=== PATIENT | female | born 1950 | race Hispanic/Latino ===

== ENCOUNTER → 2019-07-28 | Outpatient (CLI) | payer OTHER | END | disposition home or self-care (01) | LOC: RAH 14:06 | PROVIDERS: ATTEND Internal Medicine | DX: M79.89 Other specified soft tissue disorders (principal); L03.115 Cellulitis of right lower limb; L97.509 Non-pressure chronic ulcer of other part of unspecified foot with unspecified severity; E11.621 Type 2 diabetes mellitus with foot ulcer | CPT/HCPCS: 73620 ==

== ENCOUNTER → 2024-08-29 | Outpatient (CLI) | payer OTHER ==
[~2024-08-29] MED LIST: AMLO-257 PO; FURO20TA4 PO; GLIP10TA16 PO; LOSA50TA64 PO; METF-446 PO; ROSU10TA72 PO
== END | disposition home or self-care (01) ==
LOC: RAH 07:29
PROVIDERS: ATTEND Internal Medicine
DX: I70.203 Unspecified atherosclerosis of native arteries of extremities, bilateral legs (principal); R60.0 Localized edema
CPT/HCPCS: 93925; 93970

== ENCOUNTER → 2025-07-24 | Outpatient (CLI) | payer OTHER ==
[~2025-07-24] MED LIST changes: +IOHEXOL-350 75 ML VIAL IV ONE
--- NOTE | 2025-07-25 12:49 | HMCIMG ---
EXAM: CTA Chest with and without Intravenous Contrast for PE evaluation CLINICAL HISTORY: Other specified abnormal findings of blood chemistry TECHNIQUE: Axial CTA images of the chest with and without intravenous contrast using a pulmonary embolism protocol. Multiplanar reconstructed images were created and reviewed. CONTRAST: None was administered without incident. COMPARISON: None provided. FINDINGS: PULMONARY ARTERIES: No evidence pulmonary embolism is seen. AORTA: Atherosclerotic changes with vessel wall calcification of the thoracic aorta. No evidence for aneurysm or dissection. LUNGS: The lungs appear clear. PLEURAL SPACES: No evidence of pneumothorax. No pleural effusion. HEART: Normal heart size. No significant pericardial effusion. Atherosclerotic changes with vessel wall calcification of the coronary arteries. LYMPH NODES: No lymphadenopathy is evident. BONES: Spine degenerative changes noted. No focal osseous abnormality or acute fracture. UPPER ABDOMEN: Hiatus hernia is noted. IMPRESSION: 1. No evidence of pulmonary embolism. 2. No thoracic aortic aneurysm or dissection. Atherosclerotic changes of the thoracic aorta and coronary arteries. 3. No pulmonary infiltrate or pleural effusions. 4. Hiatus hernia. /[place]
== END | disposition home or self-care (01) ==
LOC: RAH 09:20
PROVIDERS: ATTEND Internal Medicine
DX: I70.0 Atherosclerosis of aorta (principal); K44.9 Diaphragmatic hernia without obstruction or gangrene; M47.814 Spondylosis without myelopathy or radiculopathy, thoracic region; R79.89 Other specified abnormal findings of blood chemistry
CPT/HCPCS: 71270; Q9967